=== PATIENT | male | born 2000 | race African-American/Black ===

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

== ENCOUNTER 2022-12-06 12:34 | Emergency (ER) | payer SELFPAY ==
[~2022-12-06] VITALS: Ht 175 cm; Wt 62.0 kg
--- NOTE | 2022-12-06 12:55 | ED Upper Extremity ---
General Chief Complaint: Upper Extremity Stated Complaint: RT SHOULDER PAIN Nursing Triage Note: PT REPORTS HE HURT HIS RIGHT SHOULDER LAST PM ON A SLIP N SLIDE. Source: patient Exam Limitations: no limitations History of Present Illness Date Seen by Provider: Dec 06, 2022 Time Seen by Provider: 12:45 Initial Comments 22-year-old male with no pertinent past medical history is soxgs-afjc-zmsqmrno coming in due to right shoulder pain. He was on a slip and slide yesterday, fell and landed almost on the top of his right shoulder. Did not hit his head or pass out. Remembers all events. No headache, neck pain, back pain, weakness, or numbness. Has not taken anything for the pain as of yet. Otherwise denying any other acute complaints Allergies and Home Medications Allergies Coded Allergies: No Known Drug Allergies (Unverified , 02/11/20) Patient Home Medication List Home Medication List Reviewed: Yes Ibuprofen (Ibuprofen) 600 Mg Tablet, 600 MG PO Q6H PRN for PAIN-MILD Prescribed by: NEIL CHA on 12/06/22 1256 Review of Systems Constitutional: No fever EENTM: no symptoms reported Respiratory: no symptoms reported Cardiovascular: no symptoms reported Gastrointestinal: no symptoms reported Genitourinary: no symptoms reported Musculoskeletal: see HPI Skin: no symptoms reported Psychiatric/Neurological: No Symptoms Reported Past Cwpijbp-Rngnor-Ksrswl Hx Patient Social History Tobacco Use?: No Use of E-Cig and/or Vaping dev: No Substance use?: No Alcohol Use?: No Pt feels they are or have been: No Immunizations Up To Date PED Vaccines UTD: Yes Seasonal Allergies Seasonal Allergies: No Past Medical History Surgeries: No Respiratory: No Cardiac: No Neurological: No Genitourinary: No Gastrointestinal: No Musculoskeletal: No Endocrine: No HEENT: No Cancer: No Psychosocial: No Integumentary: No Blood Disorders: No Physical Exam Vital Signs Vital Signs - First Documented 12/06/22 12:35 Temp 36.2 Pulse 55 Resp 18 B/P (MAP) 141/102 (115) Pulse Ox 98 O2 Delivery Room Air Capillary Refill : Less Than 3 Seconds Height, Weight, BMI Height: '" Weight: lbs. oz. kg; 20.00 BMI Method: General Appearance: WD/WN, no apparent distress HEENT: PERRL/EOMI, normal ENT inspection, pharynx normal Neck: non-tender, full range of motion, supple, normal inspection Cardiovascular: regular rate, rhythm, no edema, no murmur Respiratory: chest non-tender, lungs clear, normal breath sounds, no respiratory distress, no accessory muscle use Gastrointestinal: normal bowel sounds, non tender, soft Back: normal inspection, no CVA tenderness, no vertebral tenderness Shoulder: pain (Pain over right AC joint with decreased range of motion ac tively due to pain, neurovascularly intact distal to the injury, normal sensation over the right deltoid) Elbow/Forearm: normal inspection, non-tender, no evidence of injury, normal ROM Wrist: Yes normal inspection, Yes non-tender, Yes no evidence of injury, Yes normal ROM Hand: normal inspection, non-tender, no evidence of injury, normal ROM Neurologic/Tendon: normal sensation, normal motor functions, normal tendon func tions Neurologic/Psychiatric: no motor/sensory deficits, alert, normal mood/affect Skin: normal color, warm/dry Progress/Results/Core Measures Results/Orders My Orders Orders - NEIL CHA MD Shoulder 3 View Right (12/06/22 12:50) Ibuprofen Tablet (Motrin Tablet) (12/06/22 13:00) Medications Given in ED Current Medications Medications Dose Ordered Sig/Eleanor Route Start Time Stop Time Status Last Admin Dose Admin Ibuprofen 600 mg ONCE ONCE PO 12/06/22 13:00 12/06/22 13:01 DC 12/06/22 12:54 600 MG Vital Signs/I&O 12/06/22 12/06/22 12:35 13:15 Temp 36.2 36.2 Pulse 55 55 Resp 18 18 B/P (MAP) 141/102 (115) 141/102 Pulse Ox 98 98 O2 Delivery Room Air Room Air Blood Pressure Mean: 115 Progress Progress Note : Progress Note 22-year-old male with above history coming in due to right shoulder pain in the setting of falling on it yesterday. ABCs were intact and vitals were stable on presentation. Physical exam with pain and a little bit of swelling over his right AC joint. Clinically would have an AC joint sprain versus separation. Less likely to have a fracture. X-ray of the right shoulder ordered and interpreted by me showing likely slight widening of the AC joint which would be a grade 2 AC joint separation versus grade 1 sprain. Given ibuprofen for pain with a prescription. We will give him a sling for comfort. I believe he is otherwise stable for discharge with outpatient follow-up. He was sent home with strict return precautions. Diagnostic Imaging Diagonstic Imaging: Xray (shoulder) Comments NAME: RENEE JACOBSEN MED REC#: [id number] PT STATUS: REG ER : 2000 PHYSICIAN: NEIL CHA MD ADMIT DATE: 12/06/22/ER FS Draft Date of Exam:12/06/22 SHOULDER 3 VIEW RIGHT Indication: Pain. 3 view right shoulder performed. No fracture, dislocation or acute-appearing articular irregularity. Impression: No acute-appearing abnormality. Dictated on workstation # [id number] Dict: 12/06/22 1310 Trans: 12/06/22 1317 CV [id number] Interpreted by: KARINA PEARL Electronically signed by: Departure Impression Primary Impression: Sprain of acromioclavicular ligament of right shoulder Qualified Codes: S43.51XA - Sprain of right acromioclavicular joint, initial encounter Disposition: HOME, SELF-CARE Condition: Stable Departure-Patient Inst. Decision time for Depature: 13:10 Referrals: HORACIO LINDA MAXWELL MD (PCP/Family) Primary Care Physician Patient Instructions: Shoulder Sprain (DC) Add. Discharge Instructions: You have an AC joint sprain versus maybe a mild separation on your xray in your shoulder. These can take some time to improve, but do very well with rest and typically heal on their own. Use the sling for comfort, but it is safe to move your arm. Prescription ibuprofen was sent to your pharmacy, but you can just take 600 mg every 6 hours as needed for pain. I would recommend scheduling it for the next couple days. He can also ice the area for pain for the next couple days as well. Please follow-up with Neptali Linda here in town in regards to your pain, he is the bone specialist. His number is in this paperwork. Scripts Ibuprofen (Ibuprofen) 600 Mg Tablet 600 MG PO Q6H PRN for PAIN-MILD for 7 Days, #28 TAB Prov: NEIL CHA MD 12/06/22 Work/School Note: Work Release Form Date Seen in the Emergency Department: Dec 06, 2022 Return to Work: Dec 07, 2022 Restrictions: No Restrictions NEIL CHA MD Dec 06, 2022 12:55
[2022-12-06] MEDS ORDERED: IBUP-1773 PO (12:56)
[2022-12-06] MEDS ORDERED: IBUPROFEN 600 MG (MOTRIN) TAB PO ONE (13:00)
[2022-12-06 13:15] VITALS: BP 141/102
--- NOTE | 2022-12-06 13:18 | Diagnostic Imaging Report ---
Indication: Pain. 3 view right shoulder performed. No fracture, dislocation or acute-appearing articular irregularity. Impression: No acute-appearing abnormality. Dictated by: Dictated on workstation # [id number]
== END 2022-12-06 13:16 | disposition home or self-care (01) ==
LOC: EDUNIT# 12:34 → ER FS 12:36
DX: S43.51XA Sprain of right acromioclavicular joint, initial encounter (principal); Z28.310 Unvaccinated for COVID-19; W09.8XXA Fall on or from other playground equipment, initial encounter
CPT/HCPCS: 73030

== ENCOUNTER 2023-05-10 15:32 | Emergency (ER) | payer SELFPAY ==
[~2023-05-10] VITALS: Ht 177.8 cm; Wt 64.0 kg
[~2023-05-10 15:32] MED LIST: IBUP-1773 PO
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
[2023-05-10 16:00] VITALS: BP 119/67
== END 2023-05-10 16:00 | disposition home or self-care (01) ==
LOC: EDUNIT# 15:32 → ER FS 15:33
DX: S00.551A Superficial foreign body of lip, initial encounter (principal); H61.22 Impacted cerumen, left ear; W22.8XXA Striking against or struck by other objects, initial encounter
CPT/HCPCS: 99281